=== PATIENT | female | born 1950 | race Caucasian/White ===

== ENCOUNTER 2023-03-13 14:15 | Emergency (ER) | payer MEDICAID ==
[~2023-03-13] VITALS: Ht 160 cm; Wt 88.0 kg
[2023-03-13] MEDS ORDERED: AMLO-212 PO (14:57)
[2023-03-13 15:39] VITALS: BP 180/99; TEMP 98.6; O2SAT 96
== END 2023-03-13 15:39 | disposition home or self-care (01) ==
LOC: ER 14:16
DX: R03.0 Elevated blood-pressure reading, without diagnosis of hypertension (principal); I10 Essential (primary) hypertension